=== PATIENT | female | born 1935 | race Caucasian/White ===

== ENCOUNTER 2017-01-28 05:10 | Inpatient (IN) | payer MEDICARE, OTHER ==
[~2017-01-28 05:10] MED LIST: ACETAMINOPHEN325 M2 PO; ASPIRIN325 M3 PO; ASPIRIN325 MG PO; AZO CRANBERRY1 EAC1 PO; BACTRIM DS TAB1 EAC2; BACTRIM DS TAB1 EAC2 PO; BEE WITH C1 CAP PO; BENADRYL25 MG/TAB NG; CALCIUM + D T1 UDTAB PO; COMPETE1 EACH PO; ENTERIC COATED325 M PO; FOSAMAX70 MG PO; HYDROCODONE/APA1 TA PO; LEVOTHYROXINE112 MC3 PO; LEVOTHYROXINE200 MCG PO; LEVOTHYROXINE75 MC3 PO; LOVENOX40 MG/0.4 SQ; MIRALAX17 G2 PO; MULTIVITAMIN W/1 T PO; MULTIVITAMIN1 CAP PO; NORCO 5/325 TAB1 TAB PO; NORCO 7.5/325 T1 TAB PO; NORVASC5 MG PO; SENOKOT-S TABLE1 TAB PO; SYNTHROID88 MC1 PO; TYLENOL500 MG PO; ULTRAM50 M1 PO; VITAMIN C1000 MG PO; VITAMIN D PO; [UNRECOGNIZED DRUG - OTHER] PO; [UNRECOGNIZED DRUG - OTHER] PO
[2017-01-28 05:46] LABS: BASO % 1.4 % (0-2); BASO ABSOLUTE COUNT 0.1 tho/cmm (0.0-0.2); EOS % 3.2 % (0-7); EOSINOPHIL ABSOLUTE COUNT 0.2 tho/cmm (0.0-0.7); HCT-HEMATOCRIT 37.5 % (34.0-49.0); HGB-HEMOGLOBIN 12.7 gm/dl (12.0-15.5); IMMATURE GRANULOCYTES ABSOLUTE 0.01 tho/cmm (0-0.03); IMMATURE GRANULOCYTES PERCENT 0.2 % (0-0.3); LYMPH ABSOLUTE COUNT 1.7 tho/cmm (0.8-4.5); MCH (MEAN CORPUSCULAR HGB) 29.1 pg (28.0-32.0); MCHC MEAN CORPUSCULAR HGB CONC 33.9 % (32.0-36.0); MEAN PLATELET VOLUME 9.1 cmc (9.4-12.4); MONO % 8.9 % (0-12); MONOCYTE ABSOLUTE COUNT 0.6 tho/cmm (0.0-1.2); NEUTROPHILS % 60.3 % (40-80); PLATELET COUNT 417 tho/cmm (150-450); RED BLOOD COUNT 4.36 mil/cmm (4.00-5.20); RED CELL DISTRIBUTION WIDTH 17.3 % (12.4-16.4); WHITE BLOOD COUNT 6.7 tho/cmm (4.0-10.0)
[2017-01-28 05:50] LABS: INR 0.9 INR (0.9-1.1); PROTHROMBIN TIME 10.7 SECONDS (9.0-13.6)
[2017-01-28 05:57] LABS: ANION GAP 13 mmol/L (0-20); BLOOD UREA NITROGEN 33 mg/dl (6-24); CALCIUM 9.4 mg/dl (8.5-10.5); CARBON DIOXIDE-VENOUS 22 mmol/L (22-32); CHLORIDE 108 mmol/l (96-110); CREATININE 1.34 mg/dl (0.50-1.10); GLUCOSE 109 mg/dL (70-110); POTASSIUM 4.2 mmol/L (3.7-5.1); SODIUM 139 mmol/L (135-145); eGFR VALUE FOR BLACK 42 mL/Min
[2017-01-29 06:14] LABS: BASO % 0.4 % (0-2); EOS % 1.4 % (0-7); EOSINOPHIL ABSOLUTE COUNT 0.1 tho/cmm (0.0-0.7); HCT-HEMATOCRIT 34.4 % (34.0-49.0); HGB-HEMOGLOBIN 11.6 gm/dl (12.0-15.5); IMMATURE GRANULOCYTES ABSOLUTE 0.02 tho/cmm (0-0.03); IMMATURE GRANULOCYTES PERCENT 0.3 % (0-0.3); LYMPH ABSOLUTE COUNT 0.9 tho/cmm (0.8-4.5); MCH (MEAN CORPUSCULAR HGB) 29.3 pg (28.0-32.0); MCHC MEAN CORPUSCULAR HGB CONC 33.7 % (32.0-36.0); MCV (MEAN CELL VOLUME) 86.9 fl (82.0-96.0); MEAN PLATELET VOLUME 8.6 cmc (9.4-12.4); MONO % 10.5 % (0-12); MONOCYTE ABSOLUTE COUNT 0.8 tho/cmm (0.0-1.2); NEUTROPHIL ABSOLUTE COUNT 5.9 tho/cmm (1.6-8.0); NEUTROPHIL-AUTOMATED 5.9 tho/cmm (1.6-8.0); NEUTROPHILS % 75.4 % (40-80); PLATELET COUNT 347 tho/cmm (150-450); RED BLOOD COUNT 3.96 mil/cmm (4.00-5.20); RED CELL DISTRIBUTION WIDTH 17.2 % (12.4-16.4); WHITE BLOOD COUNT 7.8 tho/cmm (4.0-10.0)
[2017-01-30] MEDS ORDERED: ASPIRIN325 M3 PO (13:31)
[2017-01-30] MEDS ORDERED: ULTRAM50 M1 PO (13:32)
== END 2017-02-01 15:29 | disposition swing bed (61) | DRG 470 ==
LOC: SHSC 05:10 → ORE 06:49 → PACU 09:01 → 5EA 10:35
PROVIDERS: ADMIT Orthopaedic Surgery Sports Medicine
PROC: 0SRB02Z Replacement of Left Hip Joint with Metal on Polyethylene Synthetic Substitute, Open Approach (ICD-10-PCS; principal; 2017-01-28)
DX: M16.12 Unilateral primary osteoarthritis, left hip (principal)
CPT/HCPCS: C1776; J0171; J0690; J2270; J2405; J2795; J3010